=== PATIENT | female | born 1995 | race Caucasian/White ===

== ENCOUNTER → 2018-01-17 | Outpatient (CLI) | payer BC ==
[~2018-01-17] MED LIST: FLU60SYR36 IM; PREN-127 PO
== END ==
LOC: LAB 12:59
PROVIDERS: ATTEND Student in an Organized Health Care Education/Training Program
DX: Z34.93 Encounter for supervision of normal pregnancy, unspecified, third trimester (principal)
CPT/HCPCS: 87081

== ENCOUNTER 2018-02-10 13:05 | Inpatient (IN) | payer BC ==
[~2018-02-10] VITALS: Ht 152.4 cm; Wt 68.0 kg
[2018-02-11] MEDS ORDERED: OXYTOCIN 30 UNIT/D5LR 500 ML 500 ML IV PRN (18:34)
[2018-02-11] MEDS ORDERED: FAMOTIDINE(*) 20MG/50ML PREMIX 50 ML IVPB PRN (18:34)
[2018-02-11] MEDS ORDERED: ceFAZolin(*) 2GM/D5W 50ML 50 ML IVPB PRN (18:34)
[2018-02-11] MEDS ORDERED: LIDOCAINE/SOD BICARB 8.4% SYR SC PRN (18:35)
[2018-02-11] MEDS ORDERED: ONDANSETRON 4 MG/2 ML VIAL IVP PRN (18:35)
[2018-02-11] MEDS ORDERED: LIDOCAINE 1% LOCAL 300 MG/30ML INJ PRN (18:35)
[2018-02-11] MEDS ORDERED: FLUSH 10 ML SYR IVP PRN (18:35)
[2018-02-11] MEDS ORDERED: METOCLOPRAMIDE 10 MG/2 ML SDV IVP PRN (18:35)
[2018-02-11 19:20] VITALS: BP 121/79; Ht 152.4 cm; Wt 68.0 kg
[2018-02-11 19:26] LABS: PLATELET COUNT, AUTOMATED 204 K/uL (150-450)
[2018-02-11] MEDS ORDERED: PENICILLIN G 5 MILLUN/100 ML 100 ML ONE (19:36)
[2018-02-11] MEDS: LR(*) 1000 ML BAG 1,000 ML IV PRN (19:46)
[2018-02-11] MEDS ORDERED: PENICILLIN G 2.5 MILLUN/100 ML 100 ML ONE (22:41)
[2018-02-12] MEDS: fentaNYL CITR 100 MCG/2 ML AMP IVP PRN ×2 (01:42→02:58)
[2018-02-12] MEDS: LR(*) 1000 ML BAG 1,000 ML IV PRN ×4 (01:47→07:38)
[2018-02-12] MEDS ORDERED: PENICILLIN G 2.5 MILLUN/100 ML 100 ML IVPB SCH ×2 (03:00→07:00)
[2018-02-12] MEDS ORDERED: LIDOCAINE/PF 2% 200MG/10ML AMP 200 MG/10 ML AMPUL EPI PRN (03:30)
[2018-02-12] MEDS ORDERED: BUPIVACAINE 0.25% MPF INJ ONE (03:30)
[2018-02-12] MEDS ORDERED: BUPIVACAINE 0.5% INJ 30ML VIAL EPI PRN (03:30)
[2018-02-12] MEDS ORDERED: fentaNYL CITR 100 MCG/2 ML AMP IT PRN (03:30)
[2018-02-12] MEDS ORDERED: EPIDURAL KEYS XX PRN (03:30)
[2018-02-12] MEDS ORDERED: FENTANYL/ROPIVACAINE 100 ML BAG EPI PRN (03:30)
[2018-02-12] MEDS ORDERED: BUPIVACAINE 0.25% MPF INJ EPI PRN (03:30)
[2018-02-12] MEDS ORDERED: fentaNYL CITR 100 MCG/2 ML AMP ONE (03:30)
[2018-02-12] MEDS ORDERED: LIDO/EPI 2% MPF 1:200,000 20ML EPI PRN (03:30)
[2018-02-12] MEDS ORDERED: FENTANYL/ROPIVACAINE 100ML BAG 100 ML ONE (03:31)
--- NOTE | 2018-02-12 05:05 | Anesthesia OB Pre-Anes Eval ---
History of Present Illness Anesthesia Start Date: Feb 12, 2018 Anesthesia Start Time: 03:40 OB Anesthesia Diagnosis: spontaneous labor Complications: None known EDC: Feb 10, 2018 : 1 Para: 0 Vital Signs: Vital Signs Date Time Temp Pulse Resp B/P (MAP) Pulse Ox O2 Delivery O2 Flow Rate FiO2 02/11/18 19:20 98.3 100 20 121/79 (93) 94 Room Air Pain Ratin Heart Tones: WNL Result Diagram: 02/11/18 1846 Height (Inches): 60.00 Weight (Pounds): 150 BMI Calculated: 29.29 Past Medical History Medical History: no pertinent history Surgical History: appendectomy Previous Anesthesia: general Attended Childbirth Classes?: No Hx Anesthesia Reactions: No Hx Family Anesthesia Reaction: No Current Medications: pain medication (IV Fentenyl 200 mcgs) Home Meds Reported Medications Vits W-Ca,Fe,Fa(<1MG) ( VITAMINS) 1 Each Tablet, 1 EACH PO DAILY, TAB 12/12/17 Allergies: Coded Allergies: No Known Drug Allergies (Unverified , 12/12/17) Anesthesia OB ROS Neurological: No migraines/headaches, No seizures, No neuropathy ENT: Denies Tooth caps, Denies Loose teeth, Denies Chipped teeth, Denies Dentures, Denies Bridges, Denies Retainers, Denies Veneers, Denies Implants, Denies Tongue ring Pulmonary: No asthma, No smoker (pks/day/yrs) Airway Class: ll Cardiovascular ROS: No edema, No arrhythmia GI ROS: clear liquids Last Solids Date: Feb 11, 2018 Last Solids Time: 17:30 ROS: No Herpes, No STD(s), No Liver Disease, No Renal Disease Endocrine ROS: No diabetes, No gestational diabetes, No thyroid disorder Musculoskeletal ROS: No low back pain, No low back injury, No scoliosis ASA Classification: 2 Assessment and Plan Anesthesia Plan: CSE Assessment Past Medical, Surgical, Family and Obstetric Histories reviewed. Please see ACOG chart. Epidural anesthesia risks, complications and benefits explained to patient's satisfaction for labor and vaginal delivery and/or section. General anesthesia risks and benefits explained to patient's satisfaction. Questions invited, none asked. "Just do it", she says. ANTONIO MARTINEZ CRNA Feb 12, 2018 05:05
[2018-02-12] MEDS ORDERED: OXYTOCIN 30 UNIT/D5LR 500 ML 500 ML IV PRN (05:06)
--- NOTE | 2018-02-12 05:14 | Procedure Note ---
Anesthetic Placement Note Anesthesia Plan: CSE Permit for Anesthesia Signed: Yes Anesthesia Technique: Patient Sitting Anesthesia Prep: Chlorhexidine Interspace: L 3-4 Local Anesthetic: 1% Lidocaine, 25 Gauge Needle Amount Local - cc's: 2 Anesthesia Needle: 17g Touhy/Schliff Anesthesia Attempts: 1 Loss of Resistance: Air Depth of ELIZABETH (cm): 4 Epidural Needle Placement: No CSF, No Blood, No Parasthesia Intrathecal Needle: 27 Gauge Pencan Cerebral Spinal Fluid: Yes, Clear Catheter Insertion (cm): 7 Catheter Type: Maldonado - Spring Wound Epidural Dressing: Tegaderm, Tape, Adhesive [place] Anesthesia Tray: Lot Number [id number]), Expiration Date (2019-01-20), Reference Number ([id number]) Anesthesia Medications: Intrathecal Dose: mcg Fentanyl (15), mg Marcaine MPF (1.75), Time (0401) Epidural Test Dose: 1.5 Lido/Epi (1:200,000), Dose - mL (3), Time (0423), Negative Epidural Loading Dose: 0.2% Ropivicaine, With Fentanyl 2mcg/ml, Dose - ml (4), Time (0423) Epidural Infusion: 0.2% Ropivicaine, With Fentanyl 2mcg/ml, Start Time: (0425) Epidural Pump Setting: Bolus Dose - mL (4), Lockout - Minutes (20), Maintenance Rate - mL/hr (4), Maximum per Hour - mL (16) Complications: None Comment: Pt. tolerated epidural placement very well. Became comfortable within 5 minutes of medications. Mild itching noted. ANTONIO MARTINEZ CRNA Feb 12, 2018 05:13
--- NOTE | 2018-02-12 05:15 | Anesthesia Progress Note ---
Progress/Maintenance Anesthesia Note Date: Feb 12, 2018 Anesthesia Note Time: 05:00 Pain Intensity: 0 Pump: On Pump Rate (ML/HR): 4 Sensory Level: T-12 Motor Level: Bending Knees-Bilateral Dilatation: 8 Position: Left, Tilt Assessment and Plan Assessment Pt. very relaxed and attempting to sleep. BP low, ephedrine 10 mg IV given. Anesthesia Stop Day: Feb 12, 2018 ANTONIO MARTINEZ CRNA Feb 12, 2018 05:15
[2018-02-12] MEDS ORDERED: DLR(*) 1000 ML BAG 1,000 ML IV SCH (07:49)
[2018-02-12] MEDS ORDERED: DLR(*) 1000 ML BAG 1,000 ML IV ONE (08:02)
--- NOTE | 2018-02-12 09:02 | History & Physical ---
History of Present Illness Age of Patient: 22 : 1 Para or TPAL: 0 EDC per U/S: Feb 10, 2018 Estimated Gestational Age: 40.2 Chief Complaint Contractions History of Present Illness Pt is a 22 y/o @ 40-2/7 weeks gestation who presented last evening with a complaint of painful contractions. Pt reports contractions were very irregular through out the day but became consistent later last night. Pt reports pain 6- 7/10. Denies any vaginal bleeding or loss of amniotic fluid. Good movement. History Patient's Blood Type: A Negative Rubella Status: Immune Group B Strep Screen: Positive Obstetrical History: Primigravid Past Medical History: Non contributory Allergies: Coded Allergies: No Known Drug Allergies (Unverified , 12/12/17) Social History: Chance=. Denies X 3 Family History: FH: asthma BROTHER OR SISTER BROTHER OR SISTER FH: heart disease Maternal Grandfather Med Rec Home Meds Reported Medications Vits W-Ca,Fe,Fa(<1MG) ( VITAMINS) 1 Each Tablet, 1 EACH PO DAILY, TAB 12/12/17 Review of Systems All Systems Reviewed/Normal: Yes, Except as Noted Constitutional: No Fever, No Weight Loss, No Weight Gain, No Chills, No Night Sweats, No Other Neurological: No Syncope, No Confusion, No Weakness, No Dizziness, No Slurred Speech, No Other Eyes: No Vision Change, No Loss of Vision, No Photophobia, No Other ENT: No Hearing Loss, No Sinus Congestion, No Sore Throat, No Ear Ache, No Tinnitus, No Other Cardiovascular: No Chest Pain, No Palpitations, No Orthostatic Hypotension, No Other Respiratory: No Shortness of Breath, No Cough, No Wheezing, No Other Gastrointestinal: No Nausea, No Vomiting, No Diarrhea, No Dysphagia, No Constipation, No Early Satiety, No Hematemesis, No Hematochezia, No Melena, No Abdominal Pain, No Other Genitourinary: No Dysuria, No Hematuria, No Urinary Incontinence, No Other Musculoskeletal: No Pain, No Sprain, No Strain, No Impaired Mobility, No Other Psychiatric: No Depression, No Anxiety, No Other Exam General Exam Vital Signs Vital Signs Date Time Temp Pulse Resp B/P (MAP) Pulse Ox O2 Delivery O2 Flow Rate FiO2 02/11/18 19:20 98.3 100 20 121/79 (93) 94 Room Air General Apperance: Alert/Awake/No Acute Distress Neuro: No Gross deficits Eyes: Normal Extraocular Movement & Vison ENT: Normal Cardiovascular: Regular Rate and Rhythm Respiratory: No Respiratory Distress, Clear to Auscultation Abdomen: Soft, Non-Tender, Non-Distended, Gravid - Non-Tender : Normal Integumentary: Skin Intact without Lesions or Rash Psychological: Alert & Oriented X3, Appropriate Mood & Affect Cervical Dialation: 4 Cervical Effacement (%): 80 Cervical Consistency: Soft Cervical Position: Anterior Station: -2 Presentation: Vertex Uterine Contractions(Q min): 4 Uterine Contraction Strength: Moderate UC Resting Tone: Soft Fetus Feeling Movement?: Yes Estimated Weight(grams): 3200 Heart Tone Variabilty: Moderate FHT Accelerations: 15X15 FHT Decelerations: None FHT Category: I Medical Decision Making Data Points Result Diagram: 02/11/18 1846 Pre-Admit Course Medical Record Review: Yes VTE Prophylasis: Adult Deep Vein Thrombosis/Pulmonary: No Assessment and Plan 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 Receive PCN G for prophylaxis until delivery. Expectantly manage patient per her plan unless intervention is required for maternal/ problems. (2) Active labor at term ALISON HAIDER Feb 12, 2018 09:02
--- NOTE | 2018-02-12 09:05 | Labor Progress Note ---
Labor Subjective Progress Notes Subjective LATE ENTRY: No cervical change for the last few hours. Desires epidural at this time. Contractions irregular. Feeling Movement?: Yes Vaginal Discharge/Fluid: Clear Fluid Labor Pain: Mild Neurological: No Headache, No Other Eyes: No Visual Disturbances Labor Objective Vital Signs Vital Signs Date Time Temp Pulse Resp B/P (MAP) Pulse Ox O2 Delivery O2 Flow Rate FiO2 02/11/18 19:20 98.3 100 20 121/79 (93) 94 Room Air Cervical Dialation: 8 Cervical Effacement (%): 100 Cervical Consistency: Soft Cervical Position: Anterior Station: -1 Presentation: Vertex Uterine Contractions(Q min): 8 Uterine Contraction Strength: Moderate UC Resting Tone: Soft Fetus Heart Tone Variabilty: Moderate FHT Accelerations: 15X15 FHT Decelerations: None FHT Category: I Other Result Diagram: 02/11/18 1846 Assessment and Plan SIMULATION ANALYST Assessment: Stable Problems: (1) 40 weeks gestation of Status: Acute Assessment & Plan: Late entry: Pt to get Epidural. Will start oxytocin for Hypotonic contractions. Expect patient to get to complete with oxytocin infusio n. (2) Active labor at term ALISON HAIDER Feb 12, 2018 09:04
--- NOTE | 2018-02-12 09:06 | Labor Progress Note ---
Labor Subjective Progress Notes Subjective Pt comfortable s/\p epidural. Feeling pressure. Feeling Movement?: Yes Vaginal Discharge/Fluid: Bloody Show, Clear Fluid Labor Pain: Mild Neurological: No Headache, No Other Eyes: No Visual Disturbances Labor Objective Vital Signs Vital Signs Date Time Temp Pulse Resp B/P (MAP) Pulse Ox O2 Delivery O2 Flow Rate FiO2 02/11/18 19:20 98.3 100 20 121/79 (93) 94 Room Air Cervical Dialation: 10 Cervical Effacement (%): 100 Cervical Consistency: Soft Cervical Position: Anterior Station: +1 Presentation: Vertex Uterine Contractions(Q min): 3 Uterine Contraction Strength: Moderate UC Resting Tone: Soft Fetus Heart Tone Variabilty: Moderate FHT Accelerations: 15X15 FHT Decelerations: Variable FHT Category: II Other Result Diagram: 02/11/18 1846 Assessment and Plan GLOBAL CMO Plan: Routine Labor Care Problems: (1) 40 weeks gestation of Status: Acute Assessment & Plan: Pt to start pushing. Expect . (2) Active labor at term MELIZAALISON CRANE Feb 12, 2018 09:06
[2018-02-12] MEDS ORDERED: APAP/HYDROCODONE 325/5 TAB PO PRN (10:10)
[2018-02-12] MEDS ORDERED: LANOLIN OINT 7 GM TUBE TP PRN (10:10)
[2018-02-12] MEDS ORDERED: GLYCERIN/WITCH HAZEL LEAF 1 PK TP PRN (10:10)
[2018-02-12] MEDS ORDERED: BENZOCAINE 20% 60 ML BTL TP PRN (10:10)
[2018-02-12] MEDS ORDERED: ACETAMINOPHEN 325 MG TAB PO PRN (10:10)
[2018-02-12] MEDS ORDERED: HYDROCORTISONE 2.5% CR 30GM TB PR PRN (10:10)
[2018-02-12] MEDS ORDERED: MAGNESIUM HYDROXIDE* 30ML UDCP PO PRN (10:10)
--- NOTE | 2018-02-12 10:13 | OB Delivery Note ---
Delivery Note Vaginal Delivery Type: Spont. Vaginal Delivery Delivery Date: Feb 12, 2018 Delivery Time: 09:38 Estimated Gestational Age(wks): 40.2 Length of Labor Stage I (hrs): 15 Length of Labor Stage II (hrs): 1.5 Labor Stage III (minutes): 7 Delivery Anesthesia: Epidural Sex: Male Weight (gms): 3284 (7#4oz) Apgars: 1 Minute (8), 5 Minute (9) Repair Needed: Labial (Bilateral), 2nd Degree Estimated Blood Loss: 500 ALISON HAIDER DO Feb 12, 2018 10:13
[2018-02-12] MEDS: IBUPROFEN 800 MG TAB PO SCH ×2 (11:54→19:50)
--- NOTE | 2018-02-12 11:55 | Anesthesia Progress Note ---
Progress/Maintenance Anesthesia Note Date: Feb 12, 2018 Anesthesia Note Time: 09:35 Pain Intensity: 8 Pump: On Pump Rate (ML/HR): 6 Sensory Level: T-12 Motor Level: Bending Knees-Bilateral Dilatation: 10 Position: Semi-Fowlers Drug Bolus: 0.5% Marcaine (4 ml), Other (Fentenyl 85 mcgs) Assessment and Plan Assessment Suddenly found that pt. was complete and . Quickly gave manual bolus just prior to delivery. Medication worked well for repair work. Empty syringe attached to epidural catheter and RN agrees to remove with ambulation. Patient instructed the first ambulation is to be with help of nursing staff. Instructed to preform deep knee bends at bedside before walking. Anesthesia Stop Day: Feb 12, 2018 Anesthesia Stop Time: 09:40 ANTONIO MARTINEZ CRNA Feb 12, 2018 11:55
--- NOTE | 2018-02-12 12:43 | DELIVERY NOTE ---
PREOPERATIVE DIAGNOSIS 1. 22-year-old at 40-2/7 weeks gestation. 2. Labor. POSTOPERATIVE DIAGNOSIS 1. 22-year-old at 40-2/7 weeks gestation. 2. Labor. 3. Delivery. PROCEDURE Spontaneous vaginal delivery with repair of bilateral labial laceration and second-degree midline laceration. SURGEON Tani Carney, DO ANESTHESIA Epidural. FINDINGS Live born female infant at 0938 on 02/12/2020 with Apgars of 8 and 9, weighing 3,284 grams, 7 pounds 4 ounces, 3 vessel cord, intact placenta over bilateral labial lacerations and a second-degree midline laceration. ESTIMATED BLOOD LOSS 500 mL. PATHOLOGY None. COMPLICATIONS Unknown. CONDITION Stable x2, mother and to remain in LDRP. COUNTS Correct x2 for all needles, laps, sponges and instruments. LABOR SUMMARY The patient is a 22-year-old 1 para 0, who presented at 40-1/7 weeks gestation with complaint of painful contractions. She was dilated to 4 cm. She progressed all the way to 7 cm and had spontaneous rupture of amniotic membranes and continued to progress spontaneously. At about 3 a.m. this morning, patient had failed to have cervical change with contractions spaced out significantly. Patient desired an epidural, and at that time was given one accordingly. With epidural in place, the patient was started on Pitocin. She continued to progress with the aid of oxytocin to complete, eventually got complete at +2 station and was coached by nursing staff to push, and once close to , the delivery team was called and assembled. DELIVERY SUMMARY Patient was placed in a dorsal lithotomy position, prepped and draped in the usual sterile manner. Upon maternal pushing, infant head delivered in controlled manner followed anterior shoulders with general downward motion and the posterior shoulders with general upward motion with the remainder of the infant's body delivered spontaneously. Mouth and nose were bulb suctioned. The cord is clamped about 3-1/2 minutes after delivery and cut by the 's father. The infant was allowed to remain on maternal abdomen where he was vigorously cleaned and dried. Cord blood gas was obtained. The placenta delivered spontaneously with gentle cord traction. Oxytocin was infused to help her uterine tone, uterus massaged, deemed firm. Upon inspection of perineum, vagina, cervix, and labia, there were bilateral labial lacerations, these were repaired with a 4-0 chromic in a running manner. The second-degree midline laceration was repaired with a 3-0 Vicryl in the usual manner. With laceration repaired, the patient was cleaned and labor bed reassembled. Mother and were allowed to continue to christensen. [facility]
[2018-02-12 15:30] VITALS: BP 110/59
[2018-02-12 19:52] VITALS: BP 99/56
[2018-02-12] MEDS: DOCUSATE CALCIUM 240 MG CAP PO SCH (23:00)
[2018-02-12 23:03] VITALS: BP 109/73
[2018-02-13 03:45] VITALS: BP 119/77
[2018-02-13] MEDS: IBUPROFEN 800 MG TAB PO SCH ×2 (03:49→12:24)
[2018-02-13 08:12] VITALS: BP 103/69
[2018-02-13] MEDS: DOCUSATE CALCIUM 240 MG CAP PO SCH (10:03)
[2018-02-13] MEDS ORDERED: INFLUENZA VIRUS VAC 0.5ML SYR IM ONLY ONE (10:10)
[2018-02-13] MEDS ORDERED: MEASLES,MUMP,RUBELLA VAC 0.5ML SUBQ ONE (10:10)
[2018-02-13] MEDS ORDERED: DIPHTH/TETANUS/ACEL. PERTUSSIS IM ONLY ONE (10:10)
--- NOTE | 2018-02-13 12:16 | OB/GYN Progress Note ---
OB Subjective Progress Notes Subjective Patient doing good day #1. Reports lochia appropriate. Reports breast-feeding is going well. Pain controlled with by mouth pain medications. Pain is mostly near the vaginal repair. Patient ambulatory and voiding without any difficulty. Tolerating regular diet. GI: NEG Nausea, NEG Vomiting, NEG Flatus, NEG Bowel Movement : Voiding Well Pain: Mild Neurological: No Headache, No Other Eyes: No Visual Disturbances OB Objective Physical Exam Vital Signs Date Time Temp Pulse Resp B/P (MAP) Pulse Ox O2 Delivery O2 Flow Rate FiO2 02/13/18 08:12 98.3 86 18 103/69 (80) 95 Room Air Intake and Output 02/13/18 07:00 Intake Total 4050 ml Output Total 250 ml Balance 3800 ml Intake Oral 0 ml IV Total 4050 ml Output Urine Total 250 ml # Voids 1 General Appearance: Alert/Awake/No Acute Distress Neurological: No Gross deficits Eyes: Normal Extraocular Movement & Vison Respiratory: No Respiratory Distress, Clear to Auscultation Abdomen: Fundus Firm : Normal Musculoskeletal: No Weakness/Pain Extremities: No Cyanosis,Clubbing or Edema Integumentary: Skin Intact without Lesions or Rash Psychological: Alert & Oriented X3, Appropriate Mood & Affect Result Diagram: 02/13/18 0535 Assessment and Plan RN ORTHOPEDIC Assessment: Stable RN ORTHOPEDIC Plan: Discharge Home Today Problems: (1) 40 weeks gestation of Status: Acute Assessment & Plan: Status post vaginal delivery day #1. Patient desires to be discharged with today if he is discharged. We'll have medications and the pharmacy and prepare for discharge currently. (2) Active labor at term ALISON HAIDER DO Feb 13, 2018 12:16
[2018-02-13] MEDS ORDERED: LOR5/325 PO (12:17)
[2018-02-13] MEDS ORDERED: IBUP800T37 PO (12:17)
--- NOTE | 2018-02-13 12:20 | OB/GYN Discharge Summary ---
Discharge Summary Reason for Hosp/Final Diag: (1) 40 weeks gestation of Status: Acute Hospital Course & Plan: Patient is a 22-year-old who presented to clinic with a chief complaint of painful contractions she was noted to be 4 cm dilated and she quickly progressed to 7 cm had spontaneous rupture membrane within stalled at 7 cm she did receive an epidural after epidural shoots on Pitocin and eventually, it to complete complete and +2 station please see delivery note dictation for details of procedure. Patient remained in the hospital for 2 days and was discharged when she was meeting her discharge goals. (2) Active labor at term Lates Vital Signs Vital Signs Date Time Temp Pulse Resp B/P (MAP) Pulse Ox O2 Delivery O2 Flow Rate FiO2 02/13/18 08:12 98.3 86 18 103/69 (80) 95 Room Air Weight (Pounds): 150 Result Diagram: 02/13/18 0535 Condition: Improved Discharge: Home Home Meds Active Scripts Hydrocodone Bit/Acetaminophen (HYDROCODON-ACETAMINOPHEN 5-325) 1 Each Tablet, 1- 2 EACH PO Q4H PRN for PAIN, #15 TAB 0 Refills Prov:ALISON HAIDER DO 02/13/18 Reported Medications Vits W-Ca,Fe,Fa(<1MG) ( VITAMINS) 1 Each Tablet, 1 EACH PO DAILY, TAB 12/12/17 Follow up with: [facility] [phone], Dr. Haider [phone] Follow up in: 6 wks PP or PO, 2 wks PO Discharge Diet: As Tolerates Discharge Activity: No Heavy Lifting x 6 wks, Pelvic Rest Special Instructions: ALISON HAIDER DO Feb 13, 2018 12:20
[2018-02-13 13:30] VITALS: BP 117/71
--- NOTE | 2018-02-13 16:29 | Anesthesia Post Eval Note ---
Anesthesia Post Eval Note Vital Signs Date Time Temp Pulse Resp B/P (MAP) Pulse Ox O2 Delivery O2 Flow Rate FiO2 02/13/18 08:12 98.3 86 18 103/69 (80) 95 Room Air Pt able to participate in Eval: Yes Cardiovascular Status: Satisfactory Respiratory Status: Satisfactory Pain Managment: Satisfactory PO Nausea/Vomiting: Satisfactory Temperature Management: Satisfactory Mental Status: Satisfactory, Alert, Oriented X3 Post-Op Hydration Status: Satisfactory, Tolerating PO Well, Voiding w/o Difficulty Anesthesia Type: CSE Anesthesia Tolerance: Tolerated procedure well without apparent anesthetic complications. LP site clear, no redness or edema. Denies headache or any residual paresthesia. Vital Signs Stable, Patient comfortable and condition stable. ANTONIO MARTINEZ CRNA Feb 13, 2018 16:29
== END 2018-02-13 17:00 | disposition home or self-care (01) | DRG 806 ==
LOC: OBSVTOIN 02-11 18:16 → OB 02-11 18:16
PROVIDERS: ADMIT Student in an Organized Health Care Education/Training Program; ATTEND Student in an Organized Health Care Education/Training Program
PROC: 10E0XZZ Delivery of Products of Conception, External Approach (ICD-10-PCS; principal; 2018-02-12)
PROC: 0KQM0ZZ Repair Perineum Muscle, Open Approach (ICD-10-PCS; 2018-02-12)
DX: O99.824 Streptococcus B carrier state complicating childbirth (principal); O36.0130 Maternal care for anti-D [Rh] antibodies, third trimester, not applicable or unspecified; Z37.0 Single live birth; O70.1 Second degree perineal laceration during delivery; Z3A.40 40 weeks gestation of pregnancy
CPT/HCPCS: 36415; 85025; 85027; 86703; 86850; 86870; 86900; 86901; J2540; J2590; J3010; J3490; J7120; S0020